=== PATIENT | female | born 1995 | race African-American/Black ===

== ENCOUNTER 2016-06-07 14:02 | Emergency (ER) | payer OTHER ==
[~2016-06-07] VITALS: Ht 167.6 cm; Wt 80.0 kg
[~2016-06-07 14:02] MED LIST: BACT800T5 PO; CEPH500C3 PO; IBUP800T23 PO
[2016-06-07 14:03] VITALS: BP 111/69; PULSE 83; RESP 12; TEMP 98.3; O2SAT 98
[2016-06-07] MEDS ORDERED: BACT800T5 PO (16:54)
[2016-06-07] MEDS ORDERED: NYST15T TOPICAL (16:54)
--- NOTE | 2016-06-07 17:06 | PD ---
HPI Chief Complaint: Skin Problem Time Seen by Provider: 16:30 Travel History International Travel<30 days: No Contact w/Intl Traveler<30days: No Traveled to known affect area: No History of Present Illness HPI 20-year-old female presents to the emergency room for evaluation of rash under her left breast that is been present for the past week. She has not applied anything or taken anything for pain. Patient states it started out small and has spread. Noticed a smell about 2 days ago. She reports tenderness to palpation. Patient reports having a boil under her right breast previously but this feels differently. Denies fever, chills, nausea, and vomiting. No chronic medical conditions or daily medications. PFSH Past Medical History Diminished Hearing: No Immunizations Current: Yes ?: Not : 0 Social History Alcohol Use: No Tobacco Use: No Substance Use: No Allergies-Medications (Allergen,Severity, Reaction): Coded Allergies: No Known Allergies (Verified , 06/07/16) Reported Meds & Prescriptions Reported Meds & Active Scripts Active Nystatin Topical (Nystatin) 100,000 unit/gm Cream 1 Applic TOPICAL Q12HR Bactrim DS (Sulfamethoxazole-Trimethoprim) 800-160 Mg Tab 1 Tab PO BID Review of Systems Except as stated in HPI: all other systems reviewed are Neg Physical Exam Narrative GENERAL: Well-nourished, obese female in no acute distress. Afebrile. Ambulatory. SKIN: Warm and dry. Erythematous plaque with satellite pustules under the left breast. The whole area is extremely tender to palpation and malodorous. No induration or edema. No evidence of abscess. HEAD: Normocephalic. EYES: No scleral icterus. No injection or drainage. NECK: Supple, trachea midline. No JVD or lymphadenopathy. Data Data Last Documented VS Vital Signs Date Time Temp Pulse Resp B/P Pulse Ox O2 Delivery O2 Flow Rate FiO2 06/07/16 14:03 98.3 83 12 111/69 98 Room Air MDM Medical Decision Making Medical Screen Exam Complete: Yes Emergency Medical Condition: Yes Medical Record Reviewed: Yes Differential Diagnosis Intertrigo versus candidiasis versus cellulitis Narrative Course 20-year-old female presents to the emergency room for evaluation of painful red rash under her left breast for the past week that has been worsening. Denies systemic signs of infection. Denies history of diabetes. BGL is 77. She is afebrile and well-appearing. Vital signs stable. Physical exam reveals excoriated, erythematous plaque with satellite pustules. It is extremely tender to palpation and malodorous. There is no appreciable abscess. History of physical exam are consistent with cellulitis and candidiasis intertrigo. Patient will be covered for bacterial and fungal infections with Bactrim and nystatin. Told to follow up with primary care physician for recheck within 1 week or return for worsening symptoms. She understands and agrees to this plan. Diagnosis Primary Impression: Candidiasis, intertrigo Referrals: Primary Care Physician Patient Instructions: Cellulitis (ED), General Instructions Additional Instructions: Rest and drink plenty of fluids. Take Bactrim as directed, until gone. Apply nystatin as directed, until rashes gone. Follow up with a primary care physician within one week. Return to emergency room for worsening symptoms, as discussed. Med/Other Pt SpecificInfo: Prescription(s) given Scripts Nystatin Topical 100,000 unit/gm Cream1 Applic TOPICAL Q12HR #15 GM Ref 0 Prov:Eliecer Aly MD 06/07/16 Sulfamethoxazole-Trimethoprim (Bactrim DS)800-160 Mg Tab1 Tab PO BID #20 TAB Ref 0 Prov:Eliecer Aly MD 06/07/16 Disposition: 01 DISCHARGE HOME Condition: Stable Lauren Domingo Jun 07, 2016 17:05 Lauren Domingo Jun 07, 2016 17:05
== END 2016-06-07 17:37 | disposition home or self-care (01) ==
LOC: NEPB 14:02
DX: B37.9 Candidiasis, unspecified (principal); L30.4 Erythema intertrigo
CPT/HCPCS: 99283

== ENCOUNTER 2016-07-09 15:26 | Emergency (ER) | payer OTHER ==
[~2016-07-09] VITALS: Ht 167.6 cm; Wt 68.0 kg
[~2016-07-09 15:26] MED LIST changes: -CEPH500C3 PO; -IBUP800T23 PO; +NYST15T TOPICAL
[2016-07-09 15:34] VITALS: BP_SYST 126; BP_SYST 91; BP_DIAS 65; BP_DIAS 66; PULSE 108; RESP 20; TEMP 99.6; O2SAT 99
[2016-07-09] MEDS ORDERED: SODIUM CHLOR 0.9% 1000 ML INJ 1,000 ML IV SCH (17:37)
--- NOTE | 2016-07-09 17:40 | PD ---
HPI Chief Complaint: Dizziness Time Seen by Provider: 17:27 Travel History International Travel<30 days: No Contact w/Intl Traveler<30days: No Traveled to known affect area: No History of Present Illness HPI Patient is a 20-year-old female presents with a 5 day history of nausea, nonbilious nonbloody emesis and abdominal cramping and temperatures to 99F. Patient states she's just feeling fairly rundown. She is unsure if she is possibly . No vaginal bleeding and no vaginal discharge. No diarrhea. Patient states no other sick contacts at home. Tried some Tylenol but states she threw it up once. Denies abdominal pain. PFSH Past Medical History Diminished Hearing: No Immunizations Current: Yes ?: Unknown LMP: 06/15/16 : 0 Social History Alcohol Use: No Tobacco Use: No Substance Use: No Allergies-Medications (Allergen,Severity, Reaction): Coded Allergies: No Known Allergies (Verified , 06/07/16) Reported Meds & Prescriptions Reported Meds & Active Scripts Active Zofran Odt (Ondansetron Odt) 4 Mg Tab 4 Mg SL Q6HR PRN Nystatin Topical (Nystatin) 100,000 unit/gm Cream 1 Applic TOPICAL Q12HR Bactrim DS (Sulfamethoxazole-Trimethoprim) 800-160 Mg Tab 1 Tab PO BID Review of Systems Except as stated in HPI: all other systems reviewed are Neg Physical Exam Narrative GENERAL: Well-developed well-nourished, overweight but in no apparent distress. SKIN: Warm and dry. HEAD: Atraumatic. Normocephalic. EYES: Pupils equal and round. No scleral icterus. No injection or drainage. ENT: No nasal bleeding or discharge. Mucous membranes pink and moist. NECK: Trachea midline. No JVD. CARDIOVASCULAR: Regular rate and rhythm. No murmur appreciated. RESPIRATORY: No accessory muscle use. Clear to auscultation. Breath sounds equal bilaterally. GASTROINTESTINAL: Abdomen soft, non-tender, nondistended. Hepatic and splenic margins not palpable. No CVA tenderness. MUSCULOSKELETAL: No obvious deformities. No clubbing. No cyanosis. No edema. NEUROLOGICAL: Awake and alert. No obvious cranial nerve deficits. Motor grossly within normal limits. Normal speech. PSYCHIATRIC: Appropriate mood and affect; insight and judgment normal. Data Data Last Documented VS Vital Signs Date Time Temp Pulse Resp B/P Pulse Ox O2 Delivery O2 Flow Rate FiO2 07/09/16 17:46 99 07/09/16 15:34 99.6 108 20 126/66 126/66 Orders Complete Blood Count With Diff (07/09/16 17:37) Comprehensive Metabolic Panel (07/09/16 17:37) Lipase (07/09/16 17:37) Urinalysis - C+S If Indicated (07/09/16 17:37) Iv Access Insert/Monitor (07/09/16 17:37) Ecg Monitoring (07/09/16 17:37) Oximetry (07/09/16 17:37) Ondansetron Inj (Zofran Inj) (07/09/16 17:45) Sodium Chlor 0.9% 1000 Ml Inj (Ns 1000 M (07/09/16 17:37) Sodium Chloride 0.9% Flush (Ns Flush) (07/09/16 17:45) Ed Urine Pregnancytest Poc (07/09/16 17:37) Urine Culture (07/09/16 18:30) Labs Laboratory Tests Test 07/09/16 07/09/16 18:00 18:30 White Blood Count 9.9 TH/MM3 Red Blood Count 4.46 MIL/MM3 Hemoglobin 11.8 GM/DL Hematocrit 35.6 % Mean Corpuscular Volume 79.9 FL Mean Corpuscular Hemoglobin 26.3 PG Mean Corpuscular Hemoglobin 33.0 % Concent Red Cell Distribution Width 15.7 % Platelet Count 308 TH/MM3 Mean Platelet Volume 8.4 FL Neutrophils (%) (Auto) 73.5 % Lymphocytes (%) (Auto) 14.0 % Monocytes (%) (Auto) 10.1 % Eosinophils (%) (Auto) 1.7 % Basophils (%) (Auto) 0.7 % Neutrophils # (Auto) 7.3 TH/MM3 Lymphocytes # (Auto) 1.4 TH/MM3 Monocytes # (Auto) 1.0 TH/MM3 Eosinophils # (Auto) 0.2 TH/MM3 Basophils # (Auto) 0.1 TH/MM3 CBC Comment DIFF FINAL Differential Comment Sodium Level 135 MEQ/L Potassium Level 3.2 MEQ/L Chloride Level 100 MEQ/L Carbon Dioxide Level 25.2 MEQ/L Anion Gap 10 MEQ/L Blood Urea Nitrogen 6 MG/DL Creatinine 0.80 MG/DL Estimat Glomerular Filtration 111 ML/MIN Rate Random Glucose 79 MG/DL Calcium Level 8.7 MG/DL Total Bilirubin 1.4 MG/DL Aspartate Amino Transf 27 U/L (AST/SGOT) Alanine Aminotransferase 23 U/L (ALT/SGPT) Alkaline Phosphatase 86 U/L Total Protein 8.4 GM/DL Albumin 3.5 GM/DL Lipase 86 U/L Urine Color DARK-YELLOW Urine Turbidity HAZY Urine pH 6.0 Urine Specific [place] 1.030 Urine Protein 30 mg/dL Urine Glucose (UA) NEG mg/dL Urine Ketones 150 mg/dL Urine Occult Blood TRACE Urine Nitrite NEG Urine Bilirubin SMALL Urine Urobilinogen GREATER THAN 12.0 MG/DL Urine Leukocyte Esterase MOD Urine RBC 4 /hpf Urine WBC 8 /hpf Urine Squamous Epithelial 16 /hpf Cells Urine Bacteria RARE /hpf Urine Mucus MOD /lpf Microscopic Urinalysis Comment CULTURE INDICATED MDM Medical Decision Making Medical Screen Exam Complete: Yes Emergency Medical Condition: Yes Differential Diagnosis , gastritis, gastroenteritis, pancreatitis unlikely, acute abdomen extremely unlikely. Narrative Course Patient was roomed in the emergency department she appears quite well and in no apparent distress. She was given normal saline and Zofran and felt much better. Discussed with her that the most likely causes gastroenteritis though there are other causes of abdominal cramping and abdominal pain that could still be present. I discussed return to ED criteria. At this time we'll defer CAT scan as I think this is low yield giving her benign abdomen. Her labs reviewed and CBC is normal BMP shows mild hypokalemia and mild hyponatremia however this should correct well within normal saline she has been given. Her urine is a contaminated specimen which does show some evidence of concentration likely from mild dehydration. This was all discussed with the patient and recommended by mouth hydration and will discharge her Zofran. Diagnosis Primary Impression: Gastroenteritis Med/Other Pt SpecificInfo: Prescription(s) given Scripts Ondansetron Odt (Zofran Odt)4 Mg Tab4 Mg SL Q6HR PRN (Nausea/Vomiting) #30 TAB Ref 0 Prov:James Juarez MD 07/09/16 Disposition: 01 DISCHARGE HOME Condition: Stable James Juarez MD Jul 09, 2016 17:40
[2016-07-09] MEDS ORDERED: ONDANSETRON HCL 4 MG/2 ML VIAL IVP ONE (17:45)
[2016-07-09] MEDS ORDERED: SODIUM CHLORIDE 0.9% FLUSH 5 ML FLUSH IVF PRN (17:45)
[2016-07-09 17:46] VITALS: O2SAT 99
[2016-07-09 18:39] LABS: AUTOMATED NEUTROPHIL # 7.3 TH/MM3 (1.8-7.7); BASOPHIL # 0.1 TH/MM3 (0-0.2); BASOPHIL % 0.7 % (0.0-2.0); EOSINOPHIL # 0.2 TH/MM3 (0-0.4); EOSINOPHIL % 1.7 % (0.0-4.0); HEMATOCRIT 35.6 % (35.0-46.0); HEMO FLAGS DIFF FINAL; LYMPHOCYTE # 1.4 TH/MM3 (1.0-4.8); MEAN CELL VOLUME 79.9 FL (80.0-100.0); MEAN CORPUSCULAR HEMOGLOBIN 26.3 PG (27.0-34.0); MONO % 10.1 % (0.0-8.0); NEUT % 73.5 % (16.0-70.0); PLATELET COUNT 308 TH/MM3 (150-450); RED BLOOD COUNT 4.46 MIL/MM3 (4.00-5.30); RED CELL DISTRIBUTION WIDTH 15.7 % (11.6-17.2); WHITE BLOOD COUNT 9.9 TH/MM3 (4.0-11.0)
[2016-07-09 19:06] LABS: ANION GAP 10 MEQ/L (5-15); AST (GOT) 27 U/L (16-38); BICARBONATE 25.2 MEQ/L (21.0-32.0); BLOOD UREA NITROGEN 6 MG/DL (7-18); CHLORIDE 100 MEQ/L (98-107); GLOMERULAR FILTRATION RATE 111 ML/MIN (>89); POTASSIUM 3.2 MEQ/L (3.5-5.1); SODIUM (NA) 135 MEQ/L (136-145)
[2016-07-09 19:11] LABS: ALKALINE PHOSPHATASE 86 U/L (45-117); ALT (GPT) 23 U/L (9-42); TOTAL BILIRUBIN ADULT 1.4 MG/DL (0.2-1.0)
[2016-07-09 19:16] LABS: BACTERIA, URINE RARE /hpf; BLOOD, URINE TRACE (NEG); COMMENT (UR) CULTURE INDICATED; CULTURE IF INDICATED CULTURE INDICATED; GLUCOSE,URINE NEG (NEG); KETONE, URINE 150 mg/dL (NEG); MUCUS URINE MOD /lpf (OCC); NITRITE,URINE NEG (NEG); SQUAMOUS EPITHELIAL CELL URINE 16 /hpf (0-5); URINE COLOR DARK-YELLOW (YELLW/STRAW)
[2016-07-09] MEDS ORDERED: ZOFR4TAB3 SL (19:26)
== END 2016-07-09 20:14 | disposition home or self-care (01) ==
LOC: NEPD 15:26 → NEPA 20:14
DX: K52.9 Noninfective gastroenteritis and colitis, unspecified (principal); R82.90 Unspecified abnormal findings in urine
CPT/HCPCS: 80053; 81001; 83690; 84703; 85025; 87086; 96374; 99284; J2405; J7030

== ENCOUNTER 2016-07-18 03:09 | Emergency (ER) | payer OTHER ==
[~2016-07-18] VITALS: Ht 167.6 cm; Wt 84.6 kg
[~2016-07-18 03:09] MED LIST changes: +ZOFR4TAB3 SL
[2016-07-18 03:11] VITALS: BP 118/73; PULSE 79; RESP 18; TEMP 98.6; O2SAT 79; O2SAT 99
[2016-07-18] MEDS ORDERED: IBUPROFEN 800 MG TAB PO ONE (04:00)
[2016-07-18 04:39] LABS: BLOOD, URINE NEG (NEG); GLUCOSE,URINE NEG (NEG); KETONE, URINE TRACE mg/dL (NEG); NITRITE,URINE NEG (NEG)
[2016-07-18 04:41] LABS: URINE COLOR YELLOW (YELLW/STRAW)
[2016-07-18 04:48] LABS: BACTERIA, URINE RARE /hpf; RBC, URINE 0-2 /hpf (0-3); SQUAMOUS EPITHELIAL CELL URINE > 8 /hpf (0-5); WBC, URINE 0-2 /hpf (0-5)
[2016-07-18 04:49] LABS: COMMENT (UR) CULT NOT INDICATED; CULTURE IF INDICATED CULT NOT INDICATED
--- NOTE | 2016-07-18 04:50 | PD ---
HPI Chief Complaint: Skin Problem Time Seen by Provider: 03:47 Travel History International Travel<30 days: No Contact w/Intl Traveler<30days: No Traveled to known affect area: No History of Present Illness HPI 20-year-old female presents to the emergency department by private transportation for complaint of right upper arm pain. Patient noted area of redness induration and tenderness. Patient denies any ascending erythema or axillary tenderness or lymphadenopathy. No fever or chills. Patient denies any distal extremity pain or swelling. Patient has taken no medication prior to arrival to the emergency department. Pain is 7 and 8/10 in intensity. Patient is not diabetic. Patient denies any trauma. Patient does report that she was seen in the emergency department for gastroenteritis. Patient did have IV access performed in the right upper extremity at that time. Patient denies any pain or swelling at the IV access site. Patient is right- handed. Patient is unable to identify exacerbating or alleviating factors other than palpation worsens symptoms. No recent injury or trauma. No recent heavy lifting or contusion that she is aware of. Last visit. Was normal for her. Patient denies . Patient reports that she went to bed approximately 8 PM and was awakened from sleep by the discomfort in her arm. No personal history or family history of clotting disorder. No shortness of breath chest pain or pleuritic chest pain. Patient does not take control pills. Patient does not smoke cigarettes. PFSH Past Medical History Narrative Medical Negative past medical history negative surgical history no tobacco use nursing notes reviewed Medical History: Denies Significant Hx Diminished Hearing: No Immunizations Current: Yes Tetanus Vaccination: Unknown Influenza Vaccination: Yes ?: Not LMP: 06/15/16 : 0 Past Surgical History Surgical History: No Previous Surgery Social History Alcohol Use: No Tobacco Use: No Substance Use: No Allergies-Medications (Allergen,Severity, Reaction): Coded Allergies: No Known Allergies (Verified , 06/07/16) Reported Meds & Prescriptions Reported Meds & Active Scripts Active Ibuprofen 800 Mg Tab 800 Mg PO Q8H PRN Bactrim DS (Sulfamethoxazole-Trimethoprim) 800-160 Mg Tab 1 Tab PO BID Zofran Odt (Ondansetron Odt) 4 Mg Tab 4 Mg SL Q6HR PRN Nystatin Topical (Nystatin) 100,000 unit/gm Cream 1 Applic TOPICAL Q12HR Bactrim DS (Sulfamethoxazole-Trimethoprim) 800-160 Mg Tab 1 Tab PO BID Review of Systems Except as stated in HPI: all other systems reviewed are Neg General / Constitutional: No: Fever, Chills Eyes: No: Visual changes HENT: No: Congestion, Masses Cardiovascular: No: Chest Pain or Discomfort, Diaphoresis, Syncope Respiratory: No: Shortness of Breath, Pleuritic Pain Gastrointestinal: No: Abdominal Pain Genitourinary: No: Flank Pain Musculoskeletal: Positive: Pain (focal area induration R upper arm), No: Myalgias, Arthralgias Skin: Positive Lumps (R upper arm), No Rash Neurologic: No: Weakness Psychiatric: No: Anxiety Hematologic/Lymphatic: No: Lymph Node Enlargement Physical Exam Narrative GENERAL: Well-developed well-nourished female in no acute distress no respiratory distress SKIN: Warm and dry. Attention right upper arm area of induration and tenderness 3 cm x 3 cm without central fluctuance no ascending erythema distally extremity is not edematous and there is no extension of the well- demarcated 3 x 3 cm area HEAD: Normocephalic. EYES: No scleral icterus. No injection or drainage. NECK: Supple, trachea midline. No JVD or lymphadenopathy. CARDIOVASCULAR: Regular rate and rhythm without murmurs, gallops, or rubs. RESPIRATORY: Breath sounds equal bilaterally. No accessory muscle use. GASTROINTESTINAL: Abdomen soft, non-tender, nondistended. MUSCULOSKELETAL: No cyanosis, or edema. Bilaterally radial and ulnar pulses are 2+ to palpation capillary refill brisk and less than 2 seconds per digit range of motion of digits are intact distally extremity is neurovascular tendon intact. No right axilla lymphadenopathy or ascending erythema BACK: Nontender without obvious deformity. No CVA tenderness. Data Data Last Documented VS Vital Signs Date Time Temp Pulse Resp B/P Pulse Ox O2 Delivery O2 Flow Rate FiO2 07/18/16 03:24 79 18 99 Room Air 07/18/16 03:11 98.6 118/73 Orders Ed Urine Pregnancytest Poc (07/18/16 03:49) Ibuprofen (Motrin) (07/18/16 04:00) Urinalysis - C+S If Indicated (07/18/16 03:49) Labs Laboratory Tests Test 07/18/16 04:30 Urine Color YELLOW Urine Turbidity SLIGHT Urine pH 6.0 Urine Specific [place] 1.027 Urine Protein 30 mg/dL Urine Glucose (UA) NEG mg/dL Urine Ketones TRACE mg/dL Urine Occult Blood NEG Urine Nitrite NEG Urine Bilirubin NEG Urine Leukocyte Esterase NEG Urine RBC 0-2 /hpf Urine WBC 0-2 /hpf Urine Squamous Epithelial > 8 /hpf Cells Urine Amorphous Sediment FEW Urine Bacteria RARE /hpf Microscopic Urinalysis Comment CULT NOT INDICATED MDM Medical Decision Making Medical Screen Exam Complete: Yes Emergency Medical Condition: Yes Medical Record Reviewed: Yes Interpretation(s) POC hcg: negative Differential Diagnosis Cellulitis, focal abscess, superficial thrombophlebitis, DVT Narrative Course [id number] hCG: Negative; patient administered ibuprofen Exam findings supportive for focal cellulitis without fluctuance for abscess there is no distal extremity edema or erythema no superficial vessel cording approximately no ascending erythema or axillary lymphadenopathy. Patient with father at bedside reportedly has recurrent frequent abscesses. Patient will be started on oral antibiotic with plan to recheck in 1-2 days for possible incision and drainage or sooner should there be a change in patient's presentation. Diagnosis Primary Impression: Cellulitis of arm, right Referrals: Primary Care Physician call for appointment Patient Instructions: General Instructions Additional Instructions: Apply warm compresses to area of discomfort Take ibuprofen 800 mg as often as every 8 hours for pain and inflammation Monitor temperature for fever take acetaminophen/Tylenol every 4-6 hours as needed for fever 100.4F or greater Recommend wanted to have recheck for area if any concerns or worsening of symptoms or before as needed Complete course of antibiotic as prescribed Return to the emergency department for any concerns Med/Other Pt SpecificInfo: Prescription(s) given Scripts Ibuprofen 800 Mg [id number] Mg PO Q8H PRN (PAIN GREATER THAN 5) #12 TAB Ref 0 Prov:Jaye Chao MD 07/18/16 Sulfamethoxazole-Trimethoprim (Bactrim DS)800-160 Mg Tab1 Tab PO BID #14 TAB Ref 0 Prov:Jaye Chao MD 07/18/16 Disposition: 01 DISCHARGE HOME Condition: Stable Jaye Chao MD Jul 18, 2016 04:50
[2016-07-18] MEDS ORDERED: IBUP800T23 PO (05:13)
[2016-07-18] MEDS ORDERED: BACT800T5 PO (05:13)
== END 2016-07-18 05:31 | disposition home or self-care (01) ==
LOC: PHED 03:09
DX: L03.113 Cellulitis of right upper limb (principal)
CPT/HCPCS: 81001; 84703; 99283

== ENCOUNTER 2016-12-18 23:02 | Emergency (ER) | payer SELFPAY ==
[~2016-12-18 23:02] MED LIST changes: +IBUP800T23 PO
[2016-12-18 23:03] VITALS: BP 118/74; PULSE 88; RESP 16; TEMP 98.4; O2SAT 98
[2016-12-19] MEDS ORDERED: CLINDAMYCIN 150 MG CAP PO ONE (01:45)
[2016-12-19] MEDS ORDERED: CLIN1CAP6 PO (01:45)
--- NOTE | 2016-12-19 01:46 | PD ---
HPI Chief Complaint: Skin Problem Time Seen by Provider: 01:40 Travel History International Travel<30 days: No Contact w/Intl Traveler<30days: No Traveled to known affect area: No History of Present Illness HPI 21-year-old healthy female here with complaint of breast pain, wound. This evening she noticed a small ulcer on the right breast, that is draining scant amount of serosanguineous fluid/blood. Surrounding redness. She denies any trauma, open lesions, history of mammography her breast cancer. She is not currently breast-feeding and is never had any children. [facility] Past Medical History Medical History: Denies Significant Hx Diminished Hearing: No Immunizations Current: Yes Tetanus Vaccination: Unknown Influenza Vaccination: Yes ?: Not LMP: NOW : 0 Past Surgical History Surgical History: No Previous Surgery Social History Alcohol Use: No Tobacco Use: No Substance Use: No Allergies-Medications (Allergen,Severity, Reaction): Coded Allergies: No Known Allergies (Verified , 12/19/16) Reported Meds & Prescriptions Reported Meds & Active Scripts Active No Active Prescriptions or Reported Medications Review of Systems Except as stated in HPI: all other systems reviewed are Neg Physical Exam Narrative GENERAL: Well-appearing female in no acute distress SKIN: Focused skin assessment warm/dry. 0.4 x 0.3 cm ulceration on the right breast at approximately 2:00 with surrounding erythema with minimal induration, no palpable fluctuance HEAD: Normocephalic. EYES: No scleral icterus. No injection or drainage. ENT: Mucous membranes pink and moist. CARDIOVASCULAR: Regular rate and rhythm. RESPIRATORY: No accessory muscle use. MUSCULOSKELETAL: Normal gait NEUROLOGICAL: Awake and alert. Normal speech. PSYCHIATRIC: Appropriate mood and affect; insight and judgment normal. Data Data Last Documented VS Vital Signs Date Time Temp Pulse Resp B/P Pulse Ox O2 Delivery O2 Flow Rate FiO2 12/18/16 23:03 98.4 88 16 118/74 98 Room Air Orders Wound Culture And Gram Stain (12/19/16 01:42) Clindamycin (Cleocin) (12/19/16 01:45) MDM Medical Decision Making Medical Screen Exam Complete: Yes Emergency Medical Condition: Yes Medical Record Reviewed: Yes Differential Diagnosis 21-year-old female here with complaint of breast pain. Exam is consistent with small ulcerated lesion with surrounding cellulitis, no palpable fluctuance to suggest abscess. Given the rapidity of onset unlikely underlying breast cancer Narrative Course Patient had wound culture sent. Given clindamycin will be discharged home with same Diagnosis Primary Impression: Cellulitis of right breast Referrals: Primary Care Physician as needed Additional Instructions: Antibiotics as prescribed Med/Other Pt SpecificInfo: Prescription(s) given Scripts Clindamycin 300 Mg [id number] Mg PO TID 7 Days Ref 0 Prov:Krystyna Jeong MD 12/19/16 Disposition: DISCHARGE HOME Condition: Stable Krystyna Jeong MD Dec 19, 2016 01:46
== END 2016-12-19 01:58 | disposition home or self-care (01) ==
LOC: NEPE 23:02
DX: N61.0 Mastitis without abscess (principal); B96.89 Other specified bacterial agents as the cause of diseases classified elsewhere
CPT/HCPCS: 87070; 87077; 87186; 99283

== ENCOUNTER 2017-04-09 16:34 | Emergency (ER) | payer SELFPAY ==
[~2017-04-09] VITALS: Ht 167.6 cm; Wt 82.0 kg
[~2017-04-09 16:34] MED LIST changes: -BACT800T5 PO; +CLIN300C5 PO; -IBUP800T23 PO; -NYST15T TOPICAL; -ZOFR4TAB3 SL
[2017-04-09 16:48] VITALS: BP 137/63; PULSE 86; RESP 16; TEMP 99; O2SAT 100
[2017-04-09] MEDS ORDERED: SODIUM CHLOR 0.9% 1000 ML INJ 1,000 ML IV SCH (17:07)
[2017-04-09] MEDS ORDERED: DIATRIZOATE MEGLUM/DIATRIZOATE SOD 9 ML CUP ONE (17:11)
[2017-04-09] MEDS ORDERED: SODIUM CHLORIDE 0.9% FLUSH 10 ML FLUSH IV FLUSH PRN (17:15)
[2017-04-09] MEDS ORDERED: ONDANSETRON HCL 4 MG/2 ML VIAL IVP ONE (17:15)
[2017-04-09] MEDS ORDERED: MORPHINE SULFATE 4 MG/ML INJ IV PUSH ONE (17:15)
--- NOTE | 2017-04-09 17:17 | PD ---
HPI Chief Complaint: GI Complaint Time Seen by Provider: 16:58 Travel History International Travel<30 days: No Contact w/Intl Traveler<30days: No Traveled to known affect area: No History of Present Illness HPI 21-year-old female here for evaluation of abdominal pain and constipation. Symptoms have been going on for last 3 days. Abdominal pain is diffuse, constant, described as cramping, moderate to severe, worse with movements, slightly better with rest. She has had nausea and vomiting's well. No fevers or chills. No history of abdominal surgeries. No urinary symptoms. She is currently on her menstrual period and has been for the last 3 days. She states her period has been normal. She is sexually active with one partner. Denies any other vaginal discharge other than bleeding. [facility] Past Medical History Medical History: Denies Significant Hx Diminished Hearing: No Immunizations Current: Yes ?: Unknown LMP: 04/08/17 : 0 Social History Alcohol Use: Yes ([facility] Tobacco Use: No Substance Use: No Allergies-Medications (Allergen,Severity, Reaction): Coded Allergies: No Known Allergies (Verified Adverse Reaction, Unknown, 04/09/17) Reported Meds & Prescriptions Reported Meds & Active Scripts Active No Active Prescriptions or Reported Medications Review of Systems Except as stated in HPI: all other systems reviewed are Neg Physical Exam Narrative GENERAL: Well-developed, well-nourished, overweight, mild distress secondary to pain. SKIN: Focused skin assessment warm/dry. HEAD: Atraumatic. Normocephalic. EYES: Pupils equal and round. No scleral icterus. No injection or drainage. ENT: \Mucous membranes pink and moist. NECK: Trachea midline. No JVD. CARDIOVASCULAR: Regular rate and rhythm. RESPIRATORY: No accessory muscle use. Clear to auscultation. Breath sounds equal bilaterally. GASTROINTESTINAL: Abdomen soft, nondistended. Moderate diffuse tenderness without peritoneal signs. Normal bowel sounds. Small periumbilical hernia that is easily reducible. [employer]: Exam performed in the presence of female nurse. Normal external genitalia. Normal-appearing cervix. Scant blood in vaginal vault coming from cervical os. No purulence. No CMT. No adnexal masses or tenderness. MUSCULOSKELETAL: No obvious deformities. No clubbing. No cyanosis. No edema. NEUROLOGICAL: Awake and alert. No obvious cranial nerve deficits. Motor grossly within normal limits. Normal speech. PSYCHIATRIC: Appropriate mood and affect; insight and judgment normal. Data Data Last Documented VS Vital Signs Date Time Temp Pulse Resp B/P (MAP) Pulse Ox O2 Delivery O2 Flow Rate FiO2 04/09/17 17:24 16 98 Room Air 04/09/17 16:48 99.0 86 137/63 (87) Orders Orders Complete Blood Count With Diff (04/09/17 17:07) Comprehensive Metabolic Panel (04/09/17 17:07) Lipase (04/09/17 17:07) Prothrombin Time / Inr (Pt) (04/09/17 17:07) Act Partial Throm Time (Ptt) (04/09/17 17:07) Urinalysis - C+S If Indicated (04/09/17 17:07) Ct Abd/Pel W Iv Contrast(Rout) (04/09/17 17:07) Iv Access Insert/Monitor (04/09/17 17:07) Ecg Monitoring (04/09/17 17:07) Oximetry (04/09/17 17:07) Morphine Inj (Morphine Inj) (04/09/17 17:15) Ondansetron Inj (Zofran Inj) (04/09/17 17:15) Sodium Chlor 0.9% 1000 Ml Inj (Ns 1000 M (04/09/17 17:07) Sodium Chloride 0.9% Flush (Ns Flush) (04/09/17 17:15) Ed Urine Pregnancytest Poc (04/09/17 17:07) Oral Contrast - Adult (04/09/17 17:11) Diatrizoate Liq ( Gastroview Liq) (04/09/17 17:11) Gc And Chlamydia Pcr (04/09/17 17:32) Wet Prep Profile (04/09/17 17:32) Beta Hcg (Quant/Titer) (04/09/17 17:07) Metronidazole (Flagyl) (04/09/17 19:00) Potassium Chloride (Kcl) (04/09/17 19:15) Iohexol 350 Inj (Omnipaque 350 Inj) (04/09/17 19:35) Labs Laboratory Tests Test 04/09/17 17:30 04/09/17 18:03 04/09/17 18:52 White Blood Count 10.4 TH/MM3 Red Blood Count 4.05 MIL/MM3 Hemoglobin 11.0 GM/DL Hematocrit 33.6 % Mean Corpuscular Volume 82.9 FL Mean Corpuscular Hemoglobin 27.2 PG Mean Corpuscular Hemoglobin Concent 32.8 % Red Cell Distribution Width 16.1 % Platelet Count 343 TH/MM3 Mean Platelet Volume 8.8 FL Neutrophils (%) (Auto) 88.7 % Lymphocytes (%) (Auto) 5.9 % Monocytes (%) (Auto) 4.7 % Eosinophils (%) (Auto) 0.2 % Basophils (%) (Auto) 0.5 % Neutrophils # (Auto) 9.2 TH/MM3 Lymphocytes # (Auto) 0.6 TH/MM3 Monocytes # (Auto) 0.5 TH/MM3 Eosinophils # (Auto) 0.0 TH/MM3 Basophils # (Auto) 0.1 TH/MM3 CBC Comment DIFF FINAL Differential Comment Prothrombin Time 11.3 SEC Prothromb Time International Ratio 1.0 RATIO Activated Partial Thromboplast Time 24.0 SEC Blood Urea Nitrogen 9 MG/DL Creatinine 0.77 MG/DL Random Glucose 92 MG/DL Total Protein 7.8 GM/DL Albumin 3.7 GM/DL Calcium Level 8.7 MG/DL Alkaline Phosphatase 80 U/L Aspartate Amino Transf (AST/SGOT) 31 U/L Alanine Aminotransferase (ALT/SGPT) 49 U/L Total Bilirubin 1.3 MG/DL Sodium Level 141 MEQ/L Potassium Level 3.2 MEQ/L Chloride Level 106 MEQ/L Carbon Dioxide Level 25.2 MEQ/L Anion Gap 10 MEQ/L Estimat Glomerular Filtration Rate 115 ML/MIN Lipase 106 U/L Human Chorionic Gonadotropin, Quant LESS THAN 1 MIU/ML Clue Cells (Wet Prep) PRESENT Vaginal Trichomonas (Wet Prep) NONE SEEN Vaginal Yeast (Wet Prep) NONE SEEN Urine Color LIGHT-YELLOW Urine Turbidity CLEAR Urine pH 7.0 Urine Specific [place] 1.006 Urine Protein NEG mg/dL Urine Glucose (UA) NEG mg/dL Urine Ketones 10 mg/dL Urine Occult Blood NEG Urine Nitrite NEG Urine Bilirubin NEG Urine Urobilinogen LESS THAN 2.0 MG/DL Urine Leukocyte Esterase NEG Urine RBC 1 /hpf Urine WBC LESS THAN 1 /hpf Urine Mucus FEW /lpf Microscopic Urinalysis Comment CULT NOT INDICATED MDM Medical Decision Making Medical Screen Exam Complete: Yes Emergency Medical Condition: Yes Differential Diagnosis Constipation, bowel obstruction, colitis, appendicitis, menstrual cramping, UTI , cystitis, , ectopic Narrative Course Vital signs are within normal limits. CBC: WBC 10.4, hemoglobin 11, hematocrit 33.6, platelets 343, neutrophils 88%. CMP is remarkable for potassium 3.2, otherwise unremarkable. Beta hCG is negative. Wet prep is positive for clue cells, negative for yeast, negative for Trichomonas. UA is not suggestive of UTI. CT abdomen pelvis: Fat-containing umbilical hernia otherwise normal study. The patient was made aware of all findings. She was given a dose of Flagyl and will be started on Flagyl for bacterial vaginosis. She is otherwise feeling much better after morphine and is resting comfortably. She is stable for discharge home with outpatient follow-up. She was informed on when to return to the emergency department. She verbalizes understanding and agreement with plan. Diagnosis Primary Impression: Bacterial vaginosis Additional Impression: Abdominal pain Qualified Codes: R10.84 - Generalized abdominal pain Referrals: [facility] 3 days Additional Instructions: Follow-up with a primary care physician this week. Take Flagyl as prescribed. Take ibuprofen for pain. Return to the emergency department for worsening symptoms or any other concerns. Scripts Metronidazole (Flagyl) 500 Mg Tab 500 MG PO BID for Infection for 7 Days, #14 TAB 0 Refills Prov: Juanito Adams MD 04/09/17 Disposition: 01 DISCHARGE HOME Condition: Stable Juanito Adams MD Apr 09, 2017 17:17
[2017-04-09 17:24] VITALS: RESP 16; O2SAT 98
[2017-04-09 17:51] LABS: AUTOMATED NEUTROPHIL # 9.2 TH/MM3 (1.8-7.7); BASOPHIL # 0.1 TH/MM3 (0-0.2); BASOPHIL % 0.5 % (0.0-2.0); EOSINOPHIL % 0.2 % (0.0-4.0); HEMATOCRIT 33.6 % (35.0-46.0); HEMO FLAGS DIFF FINAL; LYMPH % 5.9 % (9.0-44.0); LYMPHOCYTE # 0.6 TH/MM3 (1.0-4.8); MEAN CELL VOLUME 82.9 FL (80.0-100.0); MEAN CORPUSCULAR HEMOGLOBIN 27.2 PG (27.0-34.0); MEAN CORPUSCULAR HGB CONC 32.8 % (32.0-36.0); MONO % 4.7 % (0.0-8.0); NEUT % 88.7 % (16.0-70.0); PLATELET COUNT 343 TH/MM3 (150-450); RED BLOOD COUNT 4.05 MIL/MM3 (4.00-5.30); RED CELL DISTRIBUTION WIDTH 16.1 % (11.6-17.2); WHITE BLOOD COUNT 10.4 TH/MM3 (4.0-11.0)
[2017-04-09 18:02] LABS: PROTHROMBIN TIME - PATIENT 11.3 SEC (9.8-11.6)
[2017-04-09 18:35] LABS: ALT (GPT) 49 U/L (10-53); ANION GAP 10 MEQ/L (5-15); AST (GOT) 31 U/L (15-37); BICARBONATE 25.2 MEQ/L (21.0-32.0); BLOOD UREA NITROGEN 9 MG/DL (7-18); CHLORIDE 106 MEQ/L (98-107); GLOMERULAR FILTRATION RATE 115 ML/MIN (>89); POTASSIUM 3.2 MEQ/L (3.5-5.1); SODIUM (NA) 141 MEQ/L (136-145)
[2017-04-09 18:39] LABS: ALKALINE PHOSPHATASE 80 U/L (45-117); BETA HCG QUANT LESS THAN 1 MIU/ML (0-5); TOTAL BILIRUBIN ADULT 1.3 MG/DL (0.2-1.0)
[2017-04-09] MEDS ORDERED: metroNIDAZOLE 500 MG TAB PO ONE (19:00)
[2017-04-09] MEDS ORDERED: POTASSIUM CHLORIDE 20 MEQ CONTROLLED RELEASE TAB PO ONE (19:15)
[2017-04-09 19:17] LABS: BLOOD, URINE NEG (NEG); COMMENT (UR) CULT NOT INDICATED; CULTURE IF INDICATED CULT NOT INDICATED; GLUCOSE,URINE NEG (NEG); KETONE, URINE 10 mg/dL (NEG); MUCUS URINE FEW /lpf (OCC); NITRITE,URINE NEG (NEG); URINE COLOR LIGHT-YELLOW (YELLW/STRAW)
[2017-04-09] MEDS ORDERED: IOHEXOL 350 MG/ML 10 ML VIAL (for RAD DIAG) IVCONTRAST ONE (19:35)
--- NOTE | 2017-04-09 19:50 | RADRPT ---
EXAM DATE/TIME: 04/09/2017 19:14 [place] COMPARISON: No previous studies available for comparison. INDICATIONS : Lower abdomen pain and constipation today. IV CONTRAST: 71 cc Omnipaque 350 (iohexol) IV ORAL CONTRAST: Prescribed oral contrast ingested. RADIATION DOSE: 6.64 CTDIvol (mGy) MEDICAL HISTORY : None SURGICAL HISTORY : None. ENCOUNTER: Initial ACUITY: 1 day PAIN SCALE: 7/10 LOCATION: Bilateral lower quadrant TECHNIQUE: Volumetric scanning of the abdomen and pelvis was performed. Using automated exposure control and ad justment of the mA and/or kV according to patient size, radiation dose was kept as low as reasonably achievable to obtain optimal diagnostic quality images. DICOM format image data is available electro nically for review and comparison. FINDINGS: LOWER LUNGS: The visualized lower lungs are clear. LIVER: Homogeneous density without lesion. There is no dilation of the biliary tree. No calcified gallston es. SPLEEN: Normal size without lesion. PANCREAS: Within normal limits. KIDNEYS: Normal in size and shape. There is no mass, stone or hydronephrosis. ADRENAL GLANDS: Within normal limits. VASCULAR: There is no aortic aneurysm. BOWEL/MESENTERY: The stomach, small bowel, and colon demonstrate no acute abnormality. There is no free intraperitone al air or fluid. ABDOMINAL WALL: 10 umbilical hernia. RETROPERITONEUM: There is no lymphadenopathy. BLADDER: No wall thickening or mass. REPRODUCTIVE: Within normal limits. INGUINAL: There is no lymphadenopathy or hernia. MUSCULOSKELETAL: Within normal limits for patient age. CONCLUSION: 1. Fat containing umbilical hernia otherwise normal study. Adan Villaseñro MD on April 09, 2017 at 19:46 Board Certified Radiologist. This report was verified electronically.
[2017-04-09] MEDS ORDERED: METR-1 PO (19:56)
[2017-04-09 21:42] LABS: CHLAMYDIA PCR DETECTED (NOT DETECT); NEISSERIA PCR NOT DETECTED (NOT DETECT)
== END 2017-04-09 20:20 | disposition home or self-care (01) ==
LOC: NEPD 16:34
DX: N76.0 Acute vaginitis (principal); R10.84 Generalized abdominal pain; K59.00 Constipation, unspecified; R11.2 Nausea with vomiting, unspecified
CPT/HCPCS: 74177; 80053; 81001; 83690; 84702; 84703; 85025; 85610; 85730; 87210; 87491; 87591; 96374; 96375; 99285; J2270; J2405; J7030; Q9963; Q9967

== ENCOUNTER 2017-04-11 17:25 | Emergency (ER) | payer SELFPAY ==
[~2017-04-11 17:25] MED LIST changes: -CLIN300C5 PO; +METR-1 PO
[2017-04-11 17:27] VITALS: BP 123/73; PULSE 70; RESP 14; TEMP 98.4; O2SAT 99
[2017-04-11 19:54] LABS: AUTOMATED NEUTROPHIL # 6.7 TH/MM3 (1.8-7.7); BASOPHIL # 0.1 TH/MM3 (0-0.2); BASOPHIL % 0.8 % (0.0-2.0); EOSINOPHIL # 0.1 TH/MM3 (0-0.4); HEMATOCRIT 37.7 % (35.0-46.0); HEMO FLAGS DIFF FINAL; LYMPH % 18.5 % (9.0-44.0); LYMPHOCYTE # 1.7 TH/MM3 (1.0-4.8); MEAN CELL VOLUME 83.6 FL (80.0-100.0); MEAN CORPUSCULAR HEMOGLOBIN 26.5 PG (27.0-34.0); MEAN CORPUSCULAR HGB CONC 31.7 % (32.0-36.0); MONO % 7.1 % (0.0-8.0); NEUT % 72.6 % (16.0-70.0); PLATELET COUNT 420 TH/MM3 (150-450); RED BLOOD COUNT 4.51 MIL/MM3 (4.00-5.30); RED CELL DISTRIBUTION WIDTH 16.6 % (11.6-17.2); WHITE BLOOD COUNT 9.2 TH/MM3 (4.0-11.0)
[2017-04-11 20:08] LABS: BACTERIA, URINE FEW /hpf; BLOOD, URINE LARGE (NEG); GLUCOSE,URINE NEG (NEG); KETONE, URINE 150 mg/dL (NEG); MUCUS URINE MANY /lpf (OCC); NITRITE,URINE NEG (NEG); PH, URINE 6.5 (5.0-8.5); SQUAMOUS EPITHELIAL CELL URINE 3 /hpf (0-5); URINE COLOR YELLOW (YELLW/STRAW)
[2017-04-11 20:14] LABS: ANION GAP 9 MEQ/L (5-15); AST (GOT) 13 U/L (15-37); BICARBONATE 27.3 MEQ/L (21.0-32.0); BLOOD UREA NITROGEN 7 MG/DL (7-18); CHLORIDE 103 MEQ/L (98-107); GLOMERULAR FILTRATION RATE 118 ML/MIN (>89); POTASSIUM 3.1 MEQ/L (3.5-5.1); SODIUM (NA) 139 MEQ/L (136-145)
[2017-04-11 20:15] LABS: ALT (GPT) 36 U/L (10-53)
[2017-04-11 20:17] LABS: ALKALINE PHOSPHATASE 92 U/L (45-117); TOTAL BILIRUBIN ADULT 1.4 MG/DL (0.2-1.0)
--- NOTE | 2017-04-11 20:20 | PD ---
HPI Chief Complaint: Abdominal Pain Time Seen by Provider: 20:16 Travel History International Travel<30 days: No Contact w/Intl Traveler<30days: No Traveled to known affect area: No History of Present Illness HPI This is a 21-year-old female who presents for evaluation of abdominal pain. Symptoms started 4 days ago. She describes it as a crampy pain in the periumbilical and suprapubic region which is constant. She endorses occasional nausea. She reports occasional vaginal spotting. She reports that she recently completed her menstrual period. Denies constipation, fevers, chills, flank pain, dysuria. Of note, the patient was seen here on April 09 for similar symptoms. She had a CT of the abdomen and pelvis revealing no acute abnormalities. She had a pelvic examination which revealed bacterial vaginosis for which she was placed on Flagyl which she is taking. The chlamydia PCR has come back positive. She had doxycycline called into a pharmacy however she has not yet started it. She has no other complaints. [facility] Past Medical History Medical History: Denies Significant Hx Diminished Hearing: No Immunizations Current: Yes Tetanus Vaccination: Unknown Influenza Vaccination: No ?: Not : 0 Past Surgical History Surgical History: No Previous Surgery Social History Alcohol Use: Yes ([facility]) Tobacco Use: No Substance Use: No Allergies-Medications (Allergen,Severity, Reaction): Coded Allergies: No Known Allergies (Verified Adverse Reaction, Unknown, 04/11/17) Reported Meds & Prescriptions Reported Meds & Active Scripts Active Bactrim DS (Sulfamethoxazole-Trimethoprim) 800-160 Mg Tab 1 Tab PO BID Flagyl (Metronidazole) 500 Mg Tab 500 Mg PO BID 7 Days Review of Systems Except as stated in HPI: all other systems reviewed are Neg Physical Exam Narrative GENERAL: Well-nourished female in no acute distress SKIN: Warm and dry. HEAD: Atraumatic. Normocephalic. EYES: Pupils equal and round. No scleral icterus. No injection or drainage. ENT: No nasal bleeding or discharge. Mucous membranes pink and moist. NECK: Trachea midline. No JVD. CARDIOVASCULAR: Regular rate and rhythm. No murmur appreciated. RESPIRATORY: No accessory muscle use. Clear to auscultation. Breath sounds equal bilaterally. GASTROINTESTINAL: Abdomen soft, mild suprapubic tenderness without guarding. There is no right upper quadrant or left upper quadrant tenderness. There is no CVA tenderness.. MUSCULOSKELETAL: No obvious deformities. NEUROLOGICAL: Awake and alert. No obvious cranial nerve deficits. Motor grossly within normal limits. Normal speech. PSYCHIATRIC: Appropriate mood and affect; insight and judgment normal. Data Data Last Documented VS Vital Signs Date Time Temp Pulse Resp B/P (MAP) Pulse Ox O2 Delivery O2 Flow Rate FiO2 04/11/17 17:27 98.4 70 14 123/73 (90) 99 Orders Orders Complete Blood Count With Diff (04/11/17 17:47) Comprehensive Metabolic Panel (04/11/17 17:47) Lipase (04/11/17 17:47) Urinalysis - C+S If Indicated (04/11/17 17:47) Ed Urine Pregnancytest Poc (04/11/17 17:47) Azithromycin Powd Pack (Zithromax Powd P (04/11/17 20:30) Ceftriaxone Inj (Rocephin Inj) (04/11/17 20:30) Lidocaine 1% Inj (50 Ml) (Xylocaine 1% I (04/11/17 20:30) Potassium Chloride (Kcl) (04/11/17 20:30) Urine Culture (04/11/17 19:25) Labs Laboratory Tests Test 04/11/17 19:25 White Blood Count 9.2 TH/MM3 Red Blood Count 4.51 MIL/MM3 Hemoglobin 12.0 GM/DL Hematocrit 37.7 % Mean Corpuscular Volume 83.6 FL Mean Corpuscular Hemoglobin 26.5 PG Mean Corpuscular Hemoglobin Concent 31.7 % Red Cell Distribution Width 16.6 % Platelet Count 420 TH/MM3 Mean Platelet Volume 8.8 FL Neutrophils (%) (Auto) 72.6 % Lymphocytes (%) (Auto) 18.5 % Monocytes (%) (Auto) 7.1 % Eosinophils (%) (Auto) 1.0 % Basophils (%) (Auto) 0.8 % Neutrophils # (Auto) 6.7 TH/MM3 Lymphocytes # (Auto) 1.7 TH/MM3 Monocytes # (Auto) 0.7 TH/MM3 Eosinophils # (Auto) 0.1 TH/MM3 Basophils # (Auto) 0.1 TH/MM3 CBC Comment DIFF FINAL Differential Comment Urine Color YELLOW Urine Turbidity HAZY Urine pH 6.5 Urine Specific [place] 1.032 Urine Protein 30 mg/dL Urine Glucose (UA) NEG mg/dL Urine Ketones 150 mg/dL Urine Occult Blood LARGE Urine Nitrite NEG Urine Bilirubin NEG Urine Urobilinogen 8.0 MG/DL Urine Leukocyte Esterase MOD Urine RBC /hpf Urine WBC 31 /hpf Urine Squamous Epithelial Cells 3 /hpf Urine Bacteria FEW /hpf Urine Mucus MANY /lpf Microscopic Urinalysis Comment CULTURE INDICATED Blood Urea Nitrogen 7 MG/DL Creatinine 0.75 MG/DL Random Glucose 71 MG/DL Total Protein 9.2 GM/DL Albumin 4.3 GM/DL Calcium Level 9.4 MG/DL Alkaline Phosphatase 92 U/L Aspartate Amino Transf (AST/SGOT) 13 U/L Alanine Aminotransferase (ALT/SGPT) 36 U/L Total Bilirubin 1.4 MG/DL Sodium Level 139 MEQ/L Potassium Level 3.1 MEQ/L Chloride Level 103 MEQ/L Carbon Dioxide Level 27.3 MEQ/L Anion Gap 9 MEQ/L Estimat Glomerular Filtration Rate 118 ML/MIN Lipase 105 U/L MDM Medical Decision Making Medical Screen Exam Complete: Yes Emergency Medical Condition: Yes Medical Record Reviewed: Yes Differential Diagnosis Pelvic inflammatory disease, cervicitis, ovarian torsion, intrauterine , cystitis, appendicitis, colitis, diverticulitis Narrative Course The patient's abdominal examination is benign. Reassuringly this patient just had lab work and imaging studies performed 2 days ago. Lab work was ordered in triage and this will be reviewed for any acute abnormalities. The patient will be treated for her positive chlamydia PCR results. She has mild hypokalemia as well, she'll be given 40 mEq of potassium chloride prior to discharge. The urinalysis results also revealed few bacteria, large blood, moderate leukocytes and therefore pending urine culture results I would be inclined to treat with 3 day course of Bactrim. She is encouraged to complete her Flagyl course as prescribed. Diagnosis Primary Impression: Chlamydia Additional Impressions: Bacterial vaginosis Hypokalemia Abdominal pain Qualified Codes: R10.9 - Unspecified abdominal pain Pyuria Additional Instructions: Complete the medications that have been prescribed. Follow-up with primary care as needed. Notify all sexual partners of your positive chlamydia results and have them tested/treated at the health department or through their primary care physician. No sexual contact until all partners have been tested and treated. Return for any emergent medical conditions. Med/Other Pt SpecificInfo: Prescription(s) given, No Change to Meds Scripts Sulfamethoxazole-Trimethoprim (Bactrim DS) 800-160 Mg Tab 1 TAB PO BID for Infection, #6 TAB 0 Refills Prov: Juanito Adasm MD 04/11/17 Disposition: 01 DISCHARGE HOME Condition: Stable Alexandre Castillo Apr 11, 2017 20:20
[2017-04-11 20:21] LABS: COMMENT (UR) CULTURE INDICATED; CULTURE IF INDICATED CULTURE INDICATED
[2017-04-11] MEDS ORDERED: BACT800T5 PO (20:24)
[2017-04-11] MEDS ORDERED: LIDOCAINE HCL 1% 50 ML VIAL IM ONE (20:30)
[2017-04-11] MEDS ORDERED: POTASSIUM CHLORIDE 20 MEQ CONTROLLED RELEASE TAB PO ONE (20:30)
[2017-04-11] MEDS ORDERED: AZITHROMYCIN PWD FOR SUSP 1 GM PACKET PO ONE (20:30)
[2017-04-11] MEDS ORDERED: cefTRIAXone 250 MG VIAL IM ONE (20:30)
[2017-04-11 21:09] VITALS: BP 119/70; PULSE 72; RESP 18; O2SAT 89; O2SAT 98
== END 2017-04-11 21:09 | disposition home or self-care (01) ==
LOC: NEPD 17:25
DX: A56.02 Chlamydial vulvovaginitis (principal); E87.6 Hypokalemia
CPT/HCPCS: 80053; 81001; 83690; 84703; 85025; 87086; 96372; 99284; J0696

== ENCOUNTER 2017-09-12 02:08 | Emergency (ER) | payer SELFPAY ==
[~2017-09-12] VITALS: Ht 167.6 cm; Wt 87.7 kg
[~2017-09-12 02:08] MED LIST changes: +BACT800T5 PO
[2017-09-12 02:12] VITALS: BP 119/58; PULSE 89; RESP 18; TEMP 97.9; O2SAT 100
[2017-09-12] MEDS ORDERED: TRIAM.1%T TOPICAL ×2 (02:47→03:56)
--- NOTE | 2017-09-12 03:57 | PD ---
HPI Chief Complaint: Medication Refill Request Time Seen by Provider: 03:49 Travel History International Travel<30 days: No Contact w/Intl Traveler<30days: No Traveled to known affect area: No History of Present Illness HPI 21-year-old female presents to the emergency department for medication refill. Patient is prescribed triamcinolone cream for facial dermatitis. Patient denies last period was normal in 1 month ago for her. Patient has been prescribed the triamcinolone cream from her provider and [place]. Patiently recently ran out of the medication and only reports need for refill. No reported fever chills nausea vomiting bleeding from the rash or worsening of rash. Symptoms are reportedly controlled with topical cream. Patient is not diabetic. [facility] Past Medical History Narrative Medical Eczema occasional alcohol use; nursing notes reviewed Diminished Hearing: No Integumentary: Yes (eczema) Immunizations Current: Yes Tetanus Vaccination: < 5 Years Influenza Vaccination: Yes ?: Not : 0 Past Surgical History Surgical History: No Previous Surgery Social History Alcohol Use: Yes ([facility]) Tobacco Use: No Substance Use: No Allergies-Medications (Allergen,Severity, Reaction): Coded Allergies: No Known Allergies (Verified Adverse Reaction, Unknown, 09/12/17) Reported Meds & Prescriptions Reported Meds & Active Scripts Active Reported Triamcinolone Topical (Triamcinolone Acetonide) 0.1 % Oint 1 Applic TOPICAL BID Review of Systems Except as stated in HPI: all other systems reviewed are Neg General / Constitutional: No: Fever, Chills HENT: No: Congestion Cardiovascular: No: Chest Pain or Discomfort Respiratory: No: Shortness of Breath Gastrointestinal: No: Nausea, Vomiting Genitourinary: No: Frequency, Dysuria Musculoskeletal: No: Myalgias, Arthralgias Skin: Positive Rash, Positive Dryness, No Itching Neurologic: No: Weakness Psychiatric: No: Anxiety Hematologic/Lymphatic: No: Lymph Node Enlargement Physical Exam Narrative GENERAL: Well-developed nourished female no acute distress no respiratory distress SKIN: Warm and dry. Attention dry patchy plaque-like changes to the face and forehead. No induration no erythema no pustules no vesicles no excoriation no honey like crusting no petechia no purpura. HEAD: Normocephalic. EYES: No scleral icterus. No injection or drainage. NECK: Supple, trachea midline. No JVD or lymphadenopathy. CARDIOVASCULAR: Regular rate and rhythm without murmurs, gallops, or rubs. RESPIRATORY: Breath sounds equal bilaterally. No accessory muscle use. GASTROINTESTINAL: Abdomen soft, non-tender, nondistended. MUSCULOSKELETAL: No cyanosis, or edema. BACK: Nontender without obvious deformity. No CVA tenderness. Data Data Last Documented VS Vital Signs Date Time Temp Pulse Resp B/P (MAP) Pulse Ox O2 Delivery O2 Flow Rate FiO2 09/12/17 02:12 97.9 89 18 119/58 (78) 100 MDM Medical Decision Making Medical Screen Exam Complete: Yes Emergency Medical Condition: Yes Medical Record Reviewed: Yes Differential Diagnosis Contact dermatitis, dermatophytosis, dermatosis, eczema, pityriasis Narrative Course Patient with chronic skin irritation/dermatitis here specifically for refill of medication voicing no new concerns or complaints; encouraged to follow-up with her managing physician or local any commodity buyer Diagnosis Primary Impression: Dermatitis of face Additional Impression: Medication refill 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
== END 2017-09-12 04:07 | disposition home or self-care (01) ==
LOC: PHED 02:08
DX: L30.9 Dermatitis, unspecified (principal); Z76.0 Encounter for issue of repeat prescription
CPT/HCPCS: 99281

== ENCOUNTER 2017-10-02 13:28 | Emergency (ER) | payer SELFPAY ==
[~2017-10-02] VITALS: Ht 167.6 cm; Wt 75.0 kg
[~2017-10-02 13:28] MED LIST changes: -BACT800T5 PO; -METR-1 PO; +TRIAM.1%T TOPICAL
[2017-10-02 13:48] VITALS: BP 123/64; PULSE 109; RESP 19; TEMP 99.3; O2SAT 100
== END 2017-10-02 13:53 | disposition left against medical advice (07) ==
LOC: NED 13:28
DX: R10.9 Unspecified abdominal pain (principal); Z53.21 Procedure and treatment not carried out due to patient leaving prior to being seen by health care provider
CPT/HCPCS: 99281

== ENCOUNTER 2017-10-04 10:53 | Emergency (ER) | payer SELFPAY ==
[~2017-10-04] VITALS: Ht 167.6 cm; Wt 82.0 kg
[2017-10-04 10:55] VITALS: BP 128/59; PULSE 99; RESP 18; TEMP 98.6; O2SAT 99
[2017-10-04] MEDS ORDERED: DEXAMETHASONE SOD PHOS 20 MG/5 ML VIAL IM ONE (11:15)
[2017-10-04] MEDS: IBUPROFEN 600 MG TAB PO ONE ×2 (11:15→11:30)
[2017-10-04] MEDS ORDERED: PENI500T PO (11:52)
--- NOTE | 2017-10-04 11:52 | PD ---
HPI Chief Complaint: ENT Complaint Time Seen by Provider: 11:07 Travel History International Travel<30 days: No Contact w/Intl Traveler<30days: No Traveled to known affect area: No History of Present Illness HPI Patient is a 22-year-old female comes in complaining of sore throat. She says this is been going on for 2 days. She says she had a fever last night, but she does not know how high her temperature was. She said she took some ibuprofen, but this did not help. She denies any nasal congestion or cough. She says she has a lot of pain with swallowing, but she is able to swallow. She denies any difficulty breathing. She denies any sick contacts. Severity is mild to moderate. PFSH Past Medical History Medical History: Denies Significant Hx Diminished Hearing: No Integumentary: Yes (eczema) Immunizations Current: Yes Tetanus Vaccination: < 5 Years Influenza Vaccination: Yes ?: Not LMP: [birth year]EMBER 21 : 0 Past Surgical History Surgical History: No Previous Surgery Social History Alcohol Use: Yes ([facility]) Tobacco Use: No Substance Use: No Allergies-Medications (Allergen,Severity, Reaction): Coded Allergies: No Known Allergies (Verified Adverse Reaction, Unknown, 10/04/17) Reported Meds & Prescriptions Reported Meds & Active Scripts Active No Active Prescriptions or Reported Medications Review of Systems General / Constitutional: Positive: Fever HENT: Positive: Sore Throat, No: Congestion Cardiovascular: No: Chest Pain or Discomfort Respiratory: No: Cough, Shortness of Breath Gastrointestinal: Positive: Nausea, No: Vomiting, Abdominal Pain Musculoskeletal: No: Edema, Pain Skin: No Rash, No Change in Pigmentation Neurologic: No: Weakness, Dizziness, Syncope Physical Exam Narrative GENERAL: Awake and alert, no acute distress. SKIN: Focused skin assessment warm/dry. No wounds or signs of infection. HEAD: Atraumatic. Normocephalic. EYES: Pupils equal and round. No scleral icterus. ENT: Mucous membranes pink and moist. Enlarged tonsils with exudates. Uvula is midline. NECK: Trachea midline. No JVD. CARDIOVASCULAR: Regular rate and rhythm. No murmur appreciated. RESPIRATORY: No accessory muscle use. Clear to auscultation. Breath sounds equal bilaterally. MUSCULOSKELETAL: No obvious deformities. No clubbing. No cyanosis. No edema. NEUROLOGICAL: Awake and alert. No obvious cranial nerve deficits. Motor grossly within normal limits. Normal speech. Data Data Last Documented VS Vital Signs Date Time Temp Pulse Resp B/P (MAP) Pulse Ox O2 Delivery O2 Flow Rate FiO2 10/04/17 10:55 98.6 99 18 128/59 (82) 99 Orders Orders Group A Rapid Strep Screen (10/04/17 11:10) Dexamethasone Inj (Decadron Inj) (10/04/17 11:15) Ibuprofen (Motrin) (10/04/17 11:15) Strep Culture (Group A) (10/04/17 11:10) MDM Medical Decision Making Medical Screen Exam Complete: Yes Emergency Medical Condition: Yes Medical Record Reviewed: Yes Differential Diagnosis Strep pharyngitis versus URI versus viral pharyngitis Narrative Course Patient is a 22-year-old female who comes in complaining of sore throat. Exam shows enlarged tonsils with exudates. Rapid strep screen is negative. Given Decadron and ibuprofen. Based on exam and symptoms, will treat with penicillin. Advised to follow-up with a primary doctor. Advised return to the ED as needed for any worsening symptoms. Diagnosis Primary Impression: Pharyngitis Qualified Codes: J02.9 - Acute pharyngitis, unspecified Patient Instructions: General Instructions, Pharyngitis (ED) Additional Instructions: Take all of your antibiotic. Drink plenty of fluids. Take Tylenol and ibuprofen as needed for pain. Follow-up with a primary care doctor. Return to the ED as needed for any worsening symptoms. Scripts Penicillin V Potassium (Penicillin V Potassium) 500 Mg Tab 500 MG PO Q6H for Infection for 7 Days, #28 TAB 0 Refills Prov: Sara Cruz MD 10/04/17 Disposition: 01 DISCHARGE HOME Condition: Stable Sara Cruz MD October 04, 2017 11:52
== END 2017-10-04 12:02 | disposition home or self-care (01) ==
LOC: PHEFT 10:53
DX: J02.9 Acute pharyngitis, unspecified (principal); R11.0 Nausea
CPT/HCPCS: 87081; 87880; 96372; 99283; J1100

== ENCOUNTER 2017-11-12 21:58 | Emergency (ER) | payer SELFPAY ==
[~2017-11-12] VITALS: Ht 167.6 cm; Wt 80.0 kg
[~2017-11-12 21:58] MED LIST changes: +PENI500T PO; -TRIAM.1%T TOPICAL
[2017-11-12 22:24] VITALS: BP 116/58; PULSE 74; RESP 18; TEMP 98.4; O2SAT 99
[2017-11-12] MEDS ORDERED: SODIUM CHLOR 0.9% 1000 ML INJ 1,000 ML IV SCH (22:31)
[2017-11-12] MEDS ORDERED: MORPHINE SULFATE 4 MG/ML INJ IV PUSH ONE (22:45)
[2017-11-12] MEDS ORDERED: METOCLOPRAMIDE HCL 10 MG/2 ML VIAL IV PUSH ONE (22:45)
[2017-11-12] MEDS ORDERED: SODIUM CHLORIDE 0.9% FLUSH 10 ML FLUSH IV FLUSH PRN (22:45)
[2017-11-12 23:13] VITALS: PULSE 68; RESP 18; O2SAT 98; O2SAT 99
[2017-11-12 23:28] LABS: AMORPHOUS SEDIMENT, URINE RARE; BILIRUBIN, URINE NEG (NEG); BLOOD, URINE MOD (NEG); GLUCOSE,URINE NEG (NEG); KETONE, URINE 10 mg/dL (NEG); MUCUS URINE MANY /lpf (OCC); NITRITE,URINE NEG (NEG); SQUAMOUS EPITHELIAL CELL URINE 4 /hpf (0-5); URINE COLOR YELLOW (YELLW/STRAW); URINE LEUKOCYTE ESTERASE LARGE (NEG)
--- NOTE | 2017-11-12 23:39 | PD ---
HPI Chief Complaint: Flank/Kidney Pain Time Seen by Provider: 22:39 Travel History International Travel<30 days: No Contact w/Intl Traveler<30days: No Traveled to known affect area: No History of Present Illness HPI Patient is a 22-year-old female who presents the emergency room complaints of left-sided flank pain. Patient reports that around 12 PM this afternoon, she began to have left-sided flank pain which radiates to her groin. Patient reports that she has had associated nausea and vomiting with her symptoms. Patient reports that she has been throwing up all day, reports that she has been unable to keep down any fluids, reports that now she feels dizzy. Patient denies any fever or chills, denies . patient denies history of kidney stones in the past. Patient denies any hematuria, denies dysuria, denies urinary urgency or frequency. Patient denies any vaginal bleeding or discharge. PFSH Past Medical History Medical History: Denies Significant Hx Diminished Hearing: No Integumentary: Yes (eczema) Immunizations Current: Yes Tetanus Vaccination: < 5 Years Influenza Vaccination: No ?: Not LMP: 10/28/2017 : 0 Past Surgical History Surgical History: No Previous Surgery Social History Alcohol Use: Yes (OCC) Tobacco Use: Yes Substance Use: No Allergies-Medications (Allergen,Severity, Reaction): Coded Allergies: No Known Allergies (Verified Adverse Reaction, Unknown, 11/12/17) Reported Meds & Prescriptions Reported Meds & Active Scripts Active Penicillin V Potassium 500 Mg Tab 500 Mg PO Q6H 7 Days Review of Systems General / Constitutional: No: Fever Eyes: No: Visual changes HENT: No: Headaches Cardiovascular: No: Chest Pain or Discomfort Respiratory: No: Shortness of Breath Gastrointestinal: Positive: Nausea, Vomiting, Abdominal Pain, No: Diarrhea, Constipation Genitourinary: Positive: Flank Pain, No: Dysuria Musculoskeletal: No: Pain Skin: No Rash Neurologic: No: Weakness Psychiatric: No: Depression Endocrine: No: Polydipsia Hematologic/Lymphatic: No: Easy Bruising Physical Exam Narrative GENERAL: NAD SKIN: Focused skin assessment warm/dry. HEAD: Atraumatic. Normocephalic. EYES: Pupils equal and round. No scleral icterus. No injection or drainage. ENT: No nasal bleeding or discharge. Mucous membranes pink and moist. NECK: Trachea midline. No JVD. CARDIOVASCULAR: Regular rate and rhythm. No murmur appreciated. RESPIRATORY: No accessory muscle use. Clear to auscultation. Breath sounds equal bilaterally. GASTROINTESTINAL: Abdomen soft, non-tender, nondistended. Hepatic and splenic margins not palpable. Patient with left-sided flank pain. MUSCULOSKELETAL: No obvious deformities. No clubbing. No cyanosis. No edema. NEUROLOGICAL: Awake and alert. No obvious cranial nerve deficits. Motor grossly within normal limits. Normal speech. PSYCHIATRIC: Appropriate mood and affect; insight and judgment normal. Data Data Last Documented VS Vital Signs Date Time Temp Pulse Resp B/P (MAP) Pulse Ox O2 Delivery O2 Flow Rate FiO2 11/12/17 23:13 98 Room Air 11/12/17 23:13 68 18 11/12/17 22:24 98.4 116/58 (77) Orders Orders Complete Blood Count With Diff (11/12/17 22:31) Comprehensive Metabolic Panel (11/12/17 22:31) Lipase (11/12/17 22:31) Prothrombin Time / Inr (Pt) (11/12/17 22:31) Act Partial Throm Time (Ptt) (11/12/17 22:31) Urinalysis - C+S If Indicated (11/12/17 22:31) Iv Access Insert/Monitor (11/12/17 22:31) Ecg Monitoring (11/12/17 22:31) Oximetry (11/12/17 22:31) Sodium Chlor 0.9% 1000 Ml Inj (Ns 1000 M (11/12/17 22:31) Sodium Chloride 0.9% Flush (Ns Flush) (11/12/17 22:45) Ed Urine Pregnancytest Poc (11/12/17 22:31) Ct Abd/Pel W/O Iv Contrast (11/12/17 22:43) Metoclopramide Inj (Reglan Inj) (11/12/17 22:45) Morphine Inj (Morphine Inj) (11/12/17 22:45) Urine Culture (11/12/17 23:09) Ceftriaxone Inj (Rocephin Inj) (11/13/17 00:00) Labs Laboratory Tests Test 11/12/17 23:09 White Blood Count 11.1 TH/MM3 Red Blood Count 4.44 MIL/MM3 Hemoglobin 12.0 GM/DL Hematocrit 35.7 % Mean Corpuscular Volume 80.4 FL Mean Corpuscular Hemoglobin 27.0 PG Mean Corpuscular Hemoglobin Concent 33.6 % Red Cell Distribution Width 17.0 % Platelet Count 215 TH/MM3 Mean Platelet Volume 9.4 FL Neutrophils (%) (Auto) 82.7 % Lymphocytes (%) (Auto) 10.9 % Monocytes (%) (Auto) 5.0 % Eosinophils (%) (Auto) 0.8 % Basophils (%) (Auto) 0.6 % Neutrophils # (Auto) 9.1 TH/MM3 Lymphocytes # (Auto) 1.2 TH/MM3 Monocytes # (Auto) 0.6 TH/MM3 Eosinophils # (Auto) 0.1 TH/MM3 Basophils # (Auto) 0.1 TH/MM3 CBC Comment AUTO DIFF Differential Comment AUTO DIFF CONFIRMED Toxic Vacuolation PRESENT Platelet Estimate NORMAL Platelet Morphology Comment NORMAL Ovalocytes 1+ Urine Color YELLOW Urine Turbidity HAZY Urine pH 7.0 Urine Specific [place] 1.019 Urine Protein 100 mg/dL Urine Glucose (UA) NEG mg/dL Urine Ketones 10 mg/dL Urine Occult Blood MOD Urine Nitrite NEG Urine Bilirubin NEG Urine Urobilinogen LESS THAN 2.0 MG/DL Urine Leukocyte Esterase LARGE Urine RBC 97 /hpf Urine WBC 143 /hpf Urine Squamous Epithelial Cells 4 /hpf Urine Amorphous Sediment RARE Urine Mucus MANY /lpf Microscopic Urinalysis Comment CULTURE INDICATED Blood Urea Nitrogen 8 MG/DL Creatinine 0.76 MG/DL Random Glucose 95 MG/DL Total Protein 8.3 GM/DL Albumin 3.8 GM/DL Calcium Level 8.8 MG/DL Alkaline Phosphatase 79 U/L Aspartate Amino Transf (AST/SGOT) 17 U/L Alanine Aminotransferase (ALT/SGPT) 15 U/L Total Bilirubin 1.1 MG/DL Sodium Level 140 MEQ/L Potassium Level 3.7 MEQ/L Chloride Level 108 MEQ/L Carbon Dioxide Level 21.2 MEQ/L Anion Gap 11 MEQ/L Estimat Glomerular Filtration Rate 115 ML/MIN Lipase 80 U/L MDM Medical Decision Making Medical Screen Exam Complete: Yes Emergency Medical Condition: Yes Medical Record Reviewed: Yes Interpretation(s) Vital Signs Date Time Temp Pulse Resp B/P (MAP) Pulse Ox O2 Delivery O2 Flow Rate FiO2 11/12/17 23:13 98 Room Air 11/12/17 23:13 68 18 99 Room Air 11/12/17 22:24 98.4 74 18 116/58 (77) 99 Differential Diagnosis Kidney stones, pyelonephritis, musculoskeletal pain, UTI Narrative Course Patient is a 22-year-old female presents the emergency room complaints of left- sided flank pain which has been ongoing and persistent since 12 PM this afternoon. During the course of the patients emergency department visit, the patients history, examination, and differential diagnosis were reviewed with the patient. The patient was placed on a radiation monitor with oximetry and frequent blood pressure monitoring. The patient had an IV access obtained and blood work sent for analysis. The patient was initially provided IV Reglan, IV fluid as well as IV morphine. The patients laboratory studies were reviewed and remarkable for Laboratory Tests Test 11/12/17 23:09 White Blood Count 11.1 TH/MM3 (4.0-11.0) Red Blood Count 4.44 MIL/MM3 (4.00-5.30) Hemoglobin 12.0 GM/DL (11.6-15.3) Hematocrit 35.7 % (35.0-46.0) Mean Corpuscular Volume 80.4 FL (80.0-100.0) Mean Corpuscular Hemoglobin 27.0 PG (27.0-34.0) Mean Corpuscular Hemoglobin Concent 33.6 % (32.0-36.0) Red Cell Distribution Width 17.0 % (11.6-17.2) Platelet Count 215 TH/MM3 (150-450) Mean Platelet Volume 9.4 FL (7.0-11.0) Neutrophils (%) (Auto) 82.7 % (16.0-70.0) Lymphocytes (%) (Auto) 10.9 % (9.0-44.0) Monocytes (%) (Auto) 5.0 % (0.0-8.0) Eosinophils (%) (Auto) 0.8 % (0.0-4.0) Basophils (%) (Auto) 0.6 % (0.0-2.0) Neutrophils # (Auto) 9.1 TH/MM3 (1.8-7.7) Lymphocytes # (Auto) 1.2 TH/MM3 (1.0-4.8) Monocytes # (Auto) 0.6 TH/MM3 (0-0.9) Eosinophils # (Auto) 0.1 TH/MM3 (0-0.4) Basophils # (Auto) 0.1 TH/MM3 (0-0.2) CBC Comment AUTO DIFF Differential Comment AUTO DIFF CONFIRMED Toxic Vacuolation PRESENT (NONE SEEN) Platelet Estimate NORMAL (NORMAL) Platelet Morphology Comment NORMAL (NORMAL) Ovalocytes 1+ (NORMAL) Urine Color YELLOW (YELLW/STRAW) Urine Turbidity HAZY (CLEAR) Urine pH 7.0 (5.0-8.5) Urine Specific [place] 1.019 (1.002-1.035) Urine Protein 100 mg/dL (NEG-TRACE) Urine Glucose (UA) NEG mg/dL (NEG) Urine Ketones 10 mg/dL (NEG) Urine Occult Blood MOD (NEG) Urine Nitrite NEG (NEG) Urine Bilirubin NEG (NEG) Urine Urobilinogen LESS THAN 2.0 MG/DL (LESS Urine Leukocyte Esterase LARGE (NEG) Urine RBC 97 /hpf (0-3) Urine WBC 143 /hpf (0-5) Urine Squamous Epithelial Cells 4 /hpf (0-5) Urine Amorphous Sediment RARE Urine Mucus MANY /lpf (OCC) Microscopic Urinalysis Comment CULTURE INDICATED Blood Urea Nitrogen 8 MG/DL (7-18) Creatinine 0.76 MG/DL (0.50-1.00) Random Glucose 95 MG/DL (74-106) Total Protein 8.3 GM/DL (6.4-8.2) Albumin 3.8 GM/DL (3.4-5.0) Calcium Level 8.8 MG/DL (8.5-10.1) Alkaline Phosphatase 79 U/L (45-117) Aspartate Amino Transf (AST/SGOT) 17 U/L (15-37) Alanine Aminotransferase (ALT/SGPT) 15 U/L (10-53) Total Bilirubin 1.1 MG/DL (0.2-1.0) Sodium Level 140 MEQ/L (136-145) Potassium Level 3.7 MEQ/L (3.5-5.1) Chloride Level 108 MEQ/L (98-107) Carbon Dioxide Level 21.2 MEQ/L (21.0-32.0) Anion Gap 11 MEQ/L (5-15) Estimat Glomerular Filtration Rate 115 ML/MIN (>89) Lipase 80 U/L (73-393) Radiology studies were reviewed and remarkable for Last Impressions Abdomen/Pelvis CT 11/12/17 3343 Signed Impressions: CONCLUSION: 1. Negative CT Abdomen and Pelvis non contrast. The appendix is normal. The ca lcifications within the left hemipelvis I suspect are all phleboliths. Patient with no acute findings on CT of the abdomen pelvis. UA is positive for 143 white blood cells, large leuk esterase, negative nitrites, patient with most likely pyelonephritis given her symptoms. Patient reports that she is feeling better and request to be discharged to home. Patient has received a dose of IV Rocephin, will treat with levaquin. She will follow up with all cultures from today. Diagnosis Primary Impression: Pyelonephritis Patient Instructions: General Instructions, Narcotic given in the ED Additional Instructions: Please provide patient with a copy of their lab work and studies at discharge* * Please follow up with your primary care doctor in 2-3 days Return to the ER if symptoms worsen or progress Return to the ER as needed Please follow-up with all cultures from today Please take all antibiotics as prescribed Med/Other Pt SpecificInfo: Prescription(s) given Scripts Levofloxacin (Levaquin) 750 Mg Tablet 750 MG PO DAILY for Infection for 5 Days, #5 TAB 0 Refills Prov: Mary Anne Ventura DO 11/13/17 Disposition: 01 DISCHARGE HOME Condition: Stable Mary Anne Ventura DO Nov 12, 2017 23:39
[2017-11-12 23:40] LABS: ALBUMIN 3.8 GM/DL (3.4-5.0); ALT (GPT) 15 U/L (10-53); AST (GOT) 17 U/L (15-37); BICARBONATE 21.2 MEQ/L (21.0-32.0); BLOOD UREA NITROGEN 8 MG/DL (7-18); CALCIUM 8.8 MG/DL (8.5-10.1); CHLORIDE 108 MEQ/L (98-107); CREATININE 0.76 MG/DL (0.50-1.00); GLOMERULAR FILTRATION RATE 115 ML/MIN (>89); GLUCOSE,RANDOM 95 MG/DL (74-106); SODIUM (NA) 140 MEQ/L (136-145)
[2017-11-12 23:41] LABS: AUTOMATED NEUTROPHIL # 9.1 TH/MM3 (1.8-7.7); BASOPHIL # 0.1 TH/MM3 (0-0.2); BASOPHIL % 0.6 % (0.0-2.0); EOSINOPHIL # 0.1 TH/MM3 (0-0.4); EOSINOPHIL % 0.8 % (0.0-4.0); HEMATOCRIT 35.7 % (35.0-46.0); LYMPH % 10.9 % (9.0-44.0); LYMPHOCYTE # 1.2 TH/MM3 (1.0-4.8); MEAN CELL VOLUME 80.4 FL (80.0-100.0); MEAN CORPUSCULAR HGB CONC 33.6 % (32.0-36.0); MEAN PLATELET VOLUME 9.4 FL (7.0-11.0); MONOCYTE # 0.6 TH/MM3 (0-0.9); NEUT % 82.7 % (16.0-70.0); PLATELET COUNT 215 TH/MM3 (150-450); RED BLOOD COUNT 4.44 MIL/MM3 (4.00-5.30); WHITE BLOOD COUNT 11.1 TH/MM3 (4.0-11.0)
[2017-11-12 23:43] LABS: ALKALINE PHOSPHATASE 79 U/L (45-117); TOTAL BILIRUBIN ADULT 1.1 MG/DL (0.2-1.0); TOTAL PROTEIN 8.3 GM/DL (6.4-8.2)
--- NOTE | 2017-11-12 23:54 | RADRPT ---
EXAM DATE: 11/12/2017 11:49 PM EDT AGE/SEX: 22 years / Female INDICATIONS: Left flank pain. CLINICAL DATA: This is the patient's initial encounter. Patient reports that signs and symptoms have been present for 1 day and indicates a pain score of 7/10. MEDICAL/SURGICAL HISTORY: None. None. RADIATION DOSE: 7.24 CTDI (mGy) COMPARISON: No prior exams available for comparison. TECHNIQUE: Multiple contiguous axial images were obtained through the abdomen. Images were obtained using multiple row detector helical technique. Using dose reduction techniques, radiation dose was ke pt as low as reasonably achievable to obtain optimal diagnostic quality images. FINDINGS: Lower Lungs: The visualized lower lungs are clear. Liver: The liver has a homogeneous density without space-occupying lesion. There is no dilation of th e biliary tree. Spleen: Homogeneous density without enlargement. Pancreas: Unremarkable without mass or calcification. Kidneys: Normal in size and shape. No evidence of mass or hydronephrosis. Adrenal Glands: Unremarkable. Aorta: The aorta and proximal iliac vessels are grossly unremarkable without aneurysmal dilation. Bowel/Mesentery: The bowel loops are grossly unremarkable. The cecum and sigmoid colon have a normal configuration. Abdominal Wall: Intact. Retroperitoneum: No evidence of adenopathy in the retrocrural, para-aortic, or deep pelvic regions. Bladder: Contours are smooth. Reproductive Organs: No abnormal masses or calcifications seen. Inguinal: The inguinal region is unremarkable without evidence of adenopathy. Bony Structures: Unremarkable. CONCLUSION: 1. Negative CT Abdomen and Pelvis non contrast. The appendix is normal. The calcifications within th e left hemipelvis I suspect are all phleboliths. Electronically signed by: Eliecer Ivey MD 11/12/2017 11:53 PM EDT
[2017-11-13] MEDS ORDERED: cefTRIAXone INJ 1,000 MG in SODIUM CHLORIDE 0.9% INJ 100 ML IV ONE ×2
[2017-11-13 00:25] LABS: TOXIC VACUOLATION PRESENT (NONE SEEN)
[2017-11-13 00:26] LABS: OVALOCYTES 1+ (NORMAL)
[2017-11-13] MEDS ORDERED: LEVA750T9 PO (01:26)
== END 2017-11-13 01:33 | disposition home or self-care (01) ==
LOC: NEPE 21:58
DX: N12 Tubulo-interstitial nephritis, not specified as acute or chronic (principal); B95.7 Other staphylococcus as the cause of diseases classified elsewhere; R11.2 Nausea with vomiting, unspecified; Z72.0 Tobacco use
CPT/HCPCS: 74176; 80053; 81001; 83690; 84703; 85025; 87077; 87086; 87186; 96361; 96365; 96375; 99284; J0696; J2270; J2765; J7030

== ENCOUNTER 2017-11-15 23:15 | Emergency (ER) | payer SELFPAY ==
[~2017-11-15] VITALS: Ht 167.6 cm; Wt 81.9 kg
[~2017-11-15 23:15] MED LIST changes: +LEVA750T9 PO
[2017-11-15 23:19] VITALS: BP 112/60; PULSE 116; RESP 16; TEMP 99.5; O2SAT 98
[2017-11-16 00:57] LABS: BLOOD, URINE SMALL (NEG); GLUCOSE,URINE NEG (NEG); KETONE, URINE 15 mg/dL (NEG); NITRITE,URINE NEG (NEG); URINE COLOR YELLOW (YELLW/STRAW); URINE LEUKOCYTE ESTERASE NEG (NEG)
[2017-11-16 01:02] LABS: BILIRUBIN, URINE NEG (NEG)
[2017-11-16 01:04] LABS: SQUAMOUS EPITHELIAL CELL URINE 0-5 /hpf (0-5); WBC, URINE 0-2 /hpf (0-5)
[2017-11-16 01:13] VITALS: BP 108/55; PULSE 88; RESP 16; O2SAT 100
[2017-11-16] MEDS ORDERED: SULFAMETHOXAZOLE-TRIMETHOPRIM DS 800-160 MG TAB PO ONE (01:45)
[2017-11-16] MEDS ORDERED: ACETAMINOPHEN 500 MG CPLT PO ONE (01:45)
[2017-11-16 02:00] VITALS: BP 115/63; PULSE 78; RESP 16; O2SAT 100
--- NOTE | 2017-11-16 02:20 | RADRPT ---
EXAM DATE: 11/16/2017 2:10 AM EDT AGE/SEX: 22 years / Female INDICATIONS: Left flank lower quadrant pain. CLINICAL DATA: This is the patient's subsequent encounter. Patient reports that signs and symptoms h ave been present for 3 days and indicates a pain score of 6/10. MEDICAL/SURGICAL HISTORY: . . RADIATION DOSE: 14.48 CTDI (mGy) [place] [facility] [place]/O CONTRAST[place] 11/12/2017. . TECHNIQUE: Multiple contiguous axial images were obtained through the abdomen. Images were obtained using multiple row detector helical technique. Using dose reduction techniques, radiation dose was ke pt as low as reasonably achievable to obtain optimal diagnostic quality images. FINDINGS: Lower Lungs: The visualized lower lungs are clear. Liver: The liver has a homogeneous density without space-occupying lesion. There is no dilation of th e biliary tree. Spleen: Homogeneous density without enlargement. Pancreas: Unremarkable without mass or calcification. Kidneys: Normal in size and shape. No evidence of mass or hydronephrosis. Adrenal Glands: Unremarkable. Aorta: The aorta and proximal iliac vessels are grossly unremarkable without aneurysmal dilation. Bowel/Mesentery: No evidence of bowel dilatation. No free air or free fluid. Appendix within normal limits. Abdominal Wall: Intact. Retroperitoneum: No evidence of adenopathy in the retrocrural, para-aortic, or deep pelvic regions. Bladder: Contours are smooth. Reproductive Organs: No abnormal masses or calcifications seen. Inguinal: The inguinal region is unremarkable without evidence of adenopathy. Bony Structures: Unremarkable. CONCLUSION: No acute findings in the abdomen and pelvis. Electronically signed by: Julius Newberry MD 11/16/2017 2:19 AM EDT
[2017-11-16] MEDS ORDERED: BACT800T5 PO (02:29)
--- NOTE | 2017-11-16 02:31 | PD ---
HPI Chief Complaint: Flank/Kidney Pain Time Seen by Provider: 00:19 Travel History International Travel<30 days: No Contact w/Intl Traveler<30days: No Traveled to known affect area: No History of Present Illness HPI 22-year-old female with past medical history of UTI and kidney infection presents to the emergency room with fever, chills, left lower quadrant abdominal pain. Patient was seen on November 12 and diagnosed with a urinary tract infection for which she was prescribed Levaquin as an outpatient. Patient failed to fill the prescription and take the medications she presents backing into the emergency room with similar symptoms. Patient denies any vomiting, chest pain, shortness of breath, vaginal discharge or bleeding. PFSH Past Medical History Diminished Hearing: No Integumentary: Yes (eczema) Immunizations Current: Yes Tetanus Vaccination: < 5 Years Influenza Vaccination: Yes ?: Unknown LMP: 2 WEEKS AGO : 0 Past Surgical History Surgical History: No Previous Surgery Social History Alcohol Use: Yes (OCC) Tobacco Use: Yes Substance Use: No Allergies-Medications (Allergen,Severity, Reaction): Coded Allergies: No Known Allergies (Verified Adverse Reaction, Unknown, 11/16/17) Reported Meds & Prescriptions Reported Meds & Active Scripts Active Bactrim DS (Sulfamethoxazole-Trimethoprim) 800-160 Mg Tab 1 Tab PO BID Levaquin (Levofloxacin) 750 Mg Tablet 750 Mg PO DAILY 5 Days Penicillin V Potassium 500 Mg Tab 500 Mg PO Q6H 7 Days Review of Systems Except as stated in HPI: all other systems reviewed are Neg General / Constitutional: Positive: Fever, Chills Eyes: No: Blurred Vision, Redness, Pain HENT: No: Rhinorrhea, Congestion, Neck Stiffness, Neck Pain, Earache Cardiovascular: No: Chest Pain or Discomfort, Palpitations, Dyspnea on exertion Respiratory: No: Cough, Shortness of Breath, Wheezing Gastrointestinal: Positive: Abdominal Pain, No: Nausea, Vomiting, Diarrhea, Hematochezia, Constipation Genitourinary: No: Dysuria Musculoskeletal: No: Myalgias Skin: No Rash, No Hives Neurologic: No: Weakness, Dizziness, Syncope, Headache, Slurred Speech, Seizures Psychiatric: No: Suicidal Ideations Physical Exam Narrative Vital Signs Date Time Temp Pulse Resp B/P (MAP) Pulse Ox O2 Delivery O2 Flow Rate FiO2 11/16/17 01:13 88 16 108/55 (72) 100 Room Air 6/12/18 23:19 99.5 116 16 112/60 (77) 98 GENERAL: Patient is alert and oriented -3 SKIN: Focused skin assessment warm/dry. HEAD: Atraumatic. Normocephalic. EYES: Pupils equal and round. No scleral icterus. No injection or drainage. ENT: No nasal bleeding or discharge. Mucous membranes pink and moist. NECK: Trachea midline. No JVD. CARDIOVASCULAR: Regular rate and rhythm. No murmur appreciated. RESPIRATORY: No accessory muscle use. Clear to auscultation. Breath sounds equal bilaterally. GASTROINTESTINAL: Abdomen soft, tender left lower quadrant , nondistended. Hepatic and splenic margins not palpable. MUSCULOSKELETAL: No obvious deformities. No clubbing. No cyanosis. No edema. NEUROLOGICAL: Awake and alert. No obvious cranial nerve deficits. Motor grossly within normal limits. Normal speech. PSYCHIATRIC: Appropriate mood and affect; insight and judgment normal. Data Data Last Documented VS Vital Signs Date Time Temp Pulse Resp B/P (MAP) Pulse Ox O2 Delivery O2 Flow Rate FiO2 11/16/17 03:02 68 16 102/56 (71) 99 11/16/17 02:00 Room Air 11/15/17 23:19 99.5 Last 24 hours Impressions Abdomen/Pelvis CT 11/16/17 0000 Signed Impressions: CONCLUSION: No acute findings in the abdomen and pelvis. Orders Orders Urinalysis - C+S If Indicated (11/16/17 00:31) Ed Urine Pregnancytest Poc (11/16/17 00:31) Sulfamet-Trimeth Ds 800-160 Mg (Bactrim (11/16/17 01:45) Acetaminophen (Tylenol) (11/16/17 01:45) Ct Abd/Pel W/O Iv Contrast (11/16/17 ) Ed Discharge Order (11/16/17 02:31) Labs Laboratory Tests Test 11/16/17 00:45 Urine Color YELLOW Urine Turbidity CLEAR Urine pH 6.0 Urine Specific [place] 1.020 Urine Protein TRACE mg/dL Urine Glucose (UA) NEG mg/dL Urine Ketones 15 mg/dL Urine Occult Blood SMALL Urine Nitrite NEG Urine Bilirubin NEG Urine Urobilinogen GREATER/EQUAL 8.0 MG/DL Urine Leukocyte Esterase NEG Urine RBC 3-5 /hpf Urine WBC 0-2 /hpf Urine Squamous Epithelial Cells 0-5 /hpf Urine Bacteria NONE /hpf Microscopic Urinalysis Comment CULT NOT INDICATED MDM Medical Decision Making Medical Screen Exam Complete: Yes Emergency Medical Condition: Yes Medical Record Reviewed: Yes Differential Diagnosis UTI, sepsis, kidney stone, gastroenteritis, colitis, Narrative Course After reviewing all the lab reports from today and last visit along with the CAT scan reports. I will discharge the patient home with recurrent abdominal pain. Based on the microbiology of the previous urinalysis the patient's bacteria is susceptible to Bactrim DS. Since the patient did not fill her prescription of Levaquin I will switch her to Bactrim DS for first-line treatment for UTI Diagnosis Primary Impression: Abdominal pain Referrals: Primary Care Physician 2 days Patient Instructions: Abdominal Pain (ED), General Instructions Scripts Sulfamethoxazole-Trimethoprim (Bactrim DS) 800-160 Mg Tab 1 TAB PO BID for Infection, #14 TAB 0 Refills Prov: Sourav Roth MD 11/16/17 Disposition: DISCHARGE HOME Condition: Stable Sourav Roth MD Nov 16, 2017 02:31
[2017-11-16 03:00] VITALS: RESP 16
[2017-11-16 03:02] VITALS: BP 102/56
== END 2017-11-16 03:03 | disposition home or self-care (01) ==
LOC: PHED 23:15
DX: R10.9 Unspecified abdominal pain (principal); N39.0 Urinary tract infection, site not specified; L30.9 Dermatitis, unspecified; Z72.0 Tobacco use
CPT/HCPCS: 74176; 81001; 84703; 99284